=== PATIENT | male | born 1990 | race Two or more races ===

== ENCOUNTER 2018-02-05 11:43 | Day surgery (SDC) | payer OTHER ==
[~2018-02-05] VITALS: Ht 170.2 cm; Wt 67.6 kg
[2018-02-05] VITALS (10 sets, daily range): BP systolic 121–186; BP diastolic 68–82
[~2018-02-05 11:43] MED LIST: NKM
--- NOTE | 2018-02-05 13:13 | Pre-Procedure Note/Attestation ---
Pre-Procedure Note/Attestation Complete Prior to Procedure Planned Procedure: not applicable Procedure Narrative: Septoplasty Submucous resection bilateral inferior turbinates Attestation I attest that I discussed the nature of the procedure; its benefits; risks and complications; and alternatives (and the risks and benefits of such alternatives ), prior to the procedure, with the patient (or the patient's legal passenger relations representative). I attest that, if there was a reasonable possibility of needing a blood transfusion, the patient (or the patient's legal passenger relations representative) was given the [facility] standardized written summary, pursuant to the [place] Blood Safety Act ([place] Health and Safety Code # 1645, as amended). I attest that I re-evaluated the patient just prior to the surgery and that there has been no change in the patient's H&P, JOB # [id number]: Jose Jacome MD Feb 05, 2018 13:13
--- NOTE | 2018-02-05 13:14 | Brief Operative Note ---
Immediate Post Operative Note Operative Note Chief Complaint: op note job # [id number] Pre-op Diagnosis: Nasal airway obstruction Procedure: Septoplasry SMR bilateral inferior turbinates Post-op Diagnosis: same as pre-op Findings: consistent w/pre-op dx studies Surgeon: Jose Jacome Development And Housing Director: none Additional Surgeons: none Anesthesiologist: Porfirio Anesthesia: general Specimen: yes Complications: none Condition: stable Fluids: D5LR Estimated Blood Loss: volume - 25 cc Drains: none Packing: Stamberger nasal gel Implant(s) used?: No Jose Jacome MD Feb 05, 2018 13:14
[2018-02-05] MEDS ORDERED: ceFAZolin sod 1 GM in D5W 55 ML IV ONE (13:15)
--- NOTE | 2018-02-05 13:16 | Discharge Instructions ---
Discharge Instructions Discharge Instructions Follow up with: Dr. Jacome at his office 02/12/18 11AM Diet: regular Activity: light activity Pneumonia Vaccine: pt refused vaccine Influenza Vaccine (Feb to Jul): pt refused vaccine Follow Up Orders Pt has printed instructions, which I have reviewed with pt during his pre op visit as well as given Rx for post op-Amox an Riesel. Return to Work/School on: Feb 19, 2018 Special Instructions Ice to face x 48 hours For Surgical Patients Dressing Care: may change For Congestive Heart Failure Reminder Report to your physician any weight gain of 5 pounds or more in one week. Jose Jacome MD Feb 05, 2018 13:16
[2018-02-05] MEDS ORDERED: Propofol 200mg/20ml IV ONE (13:26)
[2018-02-05] MEDS ORDERED: Ketorolac 30mg Inj ONE (13:26)
[2018-02-05] MEDS ORDERED: Midazolam 2mg/2ml Inj ONE (13:27)
[2018-02-05] MEDS ORDERED: fentaNYL 100 mcg/2 mL IV ONE (13:27)
[2018-02-05] MEDS ORDERED: Bupivacaine w/Epi 0.5% 30ml Vial INJ ONE (13:50)
[2018-02-05] MEDS ORDERED: Lidocaine 1% 10mg/ml/EPI 0.01mg/ml 50ml INJ ONE (13:50)
[2018-02-05] MEDS ORDERED: Cocaine HCl 4% 4ml vial TOPIC ONE (13:50)
[2018-02-05] MEDS ORDERED: LR 1000ml ONE (14:00)
[2018-02-05] MEDS ORDERED: NS Irrig 1000ml ONE (14:00)
[2018-02-05] MEDS ORDERED: Sterile Water Irrig 1000ml IRRIG ONE (14:00)
[2018-02-05] MEDS ORDERED: LR 1000ml 1,000 ML IVLG SCH (14:24)
--- NOTE | 2018-02-05 14:24 | Anethesia Preoperative Eval ---
Anesthesia Pre-op PMH/ROS General Date of Evaluation: Feb 05, 2018 Time of Evaluation: 12:40 Anesthesiologist: Hattie ASA Score: ASA 2 Mallampati Score Class I : Soft palate, uvula, fauces, pillars visible Class II: Soft palate, uvula, fauces visible Class III: Soft palate, base of uvula visible Class IV: Only hard plate visible Mallampati Classification: Class II Surgeon: Naa Diagnosis: Nasal septum deviation Surgical Procedure: Septoplasty Anesthesia History: none Family History: no anesthesia problems Allergies: Coded Allergies: No Known Allergies (Unverified , 02/04/18) Medications: see eMAR Past Medical History Cardiovascular: Denies: HTN, CAD, TN, valve dz, arrhythmia, other Pulmonary: Denies: asthma, COPD, YOLANDA, other Gastrointestinal/Genitourinary: Denies: GERD, CRI, ESRD, other Neurologic/Psychiatric: Denies: dementia, CVA, depression/anxiety, TIA, other Endocrine: Denies: DM, hypothyroidism, steroids, other HEENT: Denies: cataract (L), cataract (R), glaucoma, GRAYLING (L), GRAYLING (R), other Hematology/Immune: Denies: anemia, DVT, bleeding disorder, other Musculoskeletal/Integumentary: Denies: OA, RA, DJD, DDD, edema, other PMH Narrative: as above, recurrent sinusitis PSxH Narrative: none Anesthesia Pre-op Phys. Exam Physician Exam Last Vital Signs Date Time Temp Pulse Resp B/P (MAP) Pulse Ox O2 Delivery O2 Flow Rate FiO2 02/05/18 12:14 97.2 66 18 121/76 (91) 100 97.2 02/05/18 12:11 Room Air Constitutional: NAD Neurologic: CN 2-12 intact Cardiovascular: RRR, no M/R/G Respiratory: CTA Gastrointestinal: S/NT/ND Airway Exam Mallampati Score: Class II MO: full Neck: flexible ROM: full Teeth: intact Dentures: no upper, no lower Anesthesia Pre-op A/P Risk Assessment & Plan Assessment: ASA 1 Plan: GA wit LMA PONV prevention Status Change Before Surgery: No Pre-Antibiotics Drug: Ancef 1gr. Given Within 1 Hr of Incision: Yes Time Given: 14:10 Mumtaz Kuhn MD Feb 05, 2018 14:24
[2018-02-05] MEDS ORDERED: DiphenhydrAMINE 50mg/ml Inj IVP PRN (14:30)
[2018-02-05] MEDS ORDERED: Metoclopramide 10mg/2ml Inj IVP PRN (14:30)
[2018-02-05] MEDS ORDERED: fentaNYL 100 mcg/2 mL IV PRN (14:30)
[2018-02-05] MEDS ORDERED: Meperidine 50mg/ml Inj(FOR RIGORS ONLY) IV PRN (14:30)
--- NOTE | 2018-02-05 14:48 | Immediate Post-Op Evaluation ---
Immediate Post-Op Evalulation Immediate Post-Op Evalulation Procedure: Septoplasty, turbinate ablasion Date of Evaluation: Feb 05, 2018 Time of Evaluation: 14:46 IV Fluids: 800 Blood Products: none Estimated Blood Loss: 25 Urinary Output: none Blood Pressure Systolic: 134 Blood Pressure Diastolic: 82 Pulse Rate: 89 Respiratory Rate: 20 O2 Sat by Pulse Oximetry: 99 Temperature (Fahrenheit): 97.8 Pain Score (1-10): 2 Nausea: No Vomiting: No Complications none Patient Status: reacts, patent, none Mumtaz Kuhn MD Feb 05, 2018 14:48
--- NOTE | 2018-02-05 15:07 | 48 Hour Post Anesthesia Eval ---
Post Anesthesia Evaluation Procedure: Septoplasty, turbinate ablasion Date of Evaluation: Feb 05, 2018 Time of Evaluation: 15:06 Blood Pressure Systolic: 132 0: 76 Pulse Rate: 86 Respiratory Rate: 20 Temperature (Fahrenheit): 97.6 O2 Sat by Pulse Oximetry: 98 Airway: patent Nausea: No Vomiting: No Pain Intensity: 2 Hydration Status: adequate Cardiopulmonary Status: stable Mental Status/LOC: patient returned to baseline Follow-up Care/Observations: n/a Post-Anesthesia Complications: none Follow-up care needed: ready to discharge Mumtaz Kuhn MD Feb 05, 2018 15:07
--- NOTE | 2018-02-05 16:45 | History and Physical Report ---
DATE OF ADMISSION: 02/05/2018 NOTE: INCOMPLETE DICTATION DATE OF SURGERY: 02/05/2018 SURGEON: Jose Jacome M.D. INDICATION FOR PROCEDURE: The patient is a 27-year-old male, who has failed nasal steroids and antihistamines to improve nasal airway breathing. PAST SURGICAL HISTORY: No surgical history. ALLERGIES: No known drug allergies. PERSONAL HISTORY: Single. No children. Denies alcohol or drugs. 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 PHYSICAL EXAMINATION: VITAL SIGNS: He is 5 feet 7 inches, 150 pounds, blood pressure 120/80, temp 98.6, pulse 72, and respiratory rate 12. HEENT: Head, normocephalic. Eyes, PERRLA, EOMI. Lips, tongue, pharynx, and neck normal. Nose, septal deviation and hypertrophied right and left inferior turbinates. CHEST: Clear to A and P. HEART: Normal S1, S2. No S3, S4. No murmur, bruit, gallops, or rubs. ABDOMEN: Soft and nontender. Normoactive bowel sounds. GENITOURINARY: Not done. Not indicated for this procedure. He does have a PMD. EXTREMITIES: Grossly normal. NEUROLOGIC: Cranial nerves II through XII grossly normal. Jose Jacome M.D. DR: SOLOMON JOB#: [id number] CC:
--- NOTE | 2018-02-05 18:15 | Operative Note - Dictated ---
DATE OF OPERATION: 02/05/2018 SURGEON: Jose Jacome M.D. RADIO TELEVISION ANNOUNCER: None. ANESTHESIOLOGIST: Sylvester ANESTHESIA: Oral endotracheal anesthesia as well as 10 mL of 1% lidocaine and 1000 epinephrine. INDICATION FOR SURGERY: This is a patient, who has failed nasal steroids and antihistamines for treatment of nasal airway obstruction. He has a deviated nasal septum and hypertrophied right and left inferior turbinates. PREOPERATIVE DIAGNOSES: This is a patient, who has failed nasal steroids and antihistamines for treatment of nasal airway obstruction. He has a deviated nasal septum and hypertrophied right and left inferior turbinates. POSTOPERATIVE DIAGNOSES: This is a patient, who has failed nasal steroids and antihistamines for treatment of nasal airway obstruction. He has a deviated nasal septum and hypertrophied right and left inferior turbinates. FINDINGS: This is a 1, who has failed nasal steroids and antihistamines for treatment of nasal airway obstruction. He has a deviated nasal septum and hypertrophied right and left inferior turbinates. PROCEDURES: 1. Septoplasty. 2. Submucous resection of the right inferior turbinate. 3. Submucous resection of the left inferior turbinate. TECHNIQUE: The patient was prepped and draped in the usual manner. Time-out was performed after the patient was intubated. All agreed as to the equipment and procedures to be done. I injected with lidocaine epinephrine mixture 10 mL. Additionally 4 mL of 4% cocaine on 4 nasal pledgets were placed 2 on either nostril. These were accounted for at the end of the case. I then made an, between the columella and inferior aspect of the quadrangular cartilage, incision in order to elevate subperiosteally and subperichondrially to remove a deviation and went all the way down to the inferior basis of the septal cartilage. I then proceeded to remove small amount of his overlapping and doubled up on itself especially on the left side. I then proceeded to make an additional incision approximately a centimeter and a half back and removed some cartilage of the quadrangular cartilage and cross hatched the remainder. I then proceeded to sew this back together with a 4-0 plain suture x2. I then proceeded to make an incision on either inferior turbinate with a 15 blade. I elevated with a dental elevator to create a tunnel. I then placed radiofrequency x2 after coating with saline gel. I then outfractured each inferior turbinate without difficulty. At the end of the case, I could turn the Boies elevator 360 degrees on either nares. Sponge and needle count was correct. ESTIMATED BLOOD LOSS: 25 mL. COUNTS: None. DRAINS: None. Jose Jacome M.D. DR: SOLOMON JOB#: [id number] CC: TG
== END 2018-02-05 15:40 | disposition home or self-care (01) ==
LOC: SUR 11:43
DX: J34.2 Deviated nasal septum (principal); J34.3 Hypertrophy of nasal turbinates
CPT/HCPCS: 30140; 30520; J1885; J2250; J2405; J2704; J3010; 94003; 94150